=== PATIENT | female | born 1955 | race Two or more races ===

== ENCOUNTER 2021-01-02 13:04 | Inpatient (IN) | payer OTHER ==
[~2021-01-02] VITALS: Ht 170.2 cm; Wt 74.0 kg
--- NOTE | 2021-01-02 13:14 | NUR ---
FNPS: CODE NEURO CALLED
[2021-01-02] MEDS ORDERED: LABETALOL 5MG/ML, 20ML ONE (13:22)
[2021-01-02] MEDS ORDERED: MORPHINE SULFATE 4 MG/ML, 1ML ONE ×2 (13:25→14:30)
[2021-01-02] MEDS ORDERED: LABETALOL 5MG/ML, 20ML IVPush STA (13:28)
[2021-01-02] MEDS: MORPHINE SULFATE 4 MG/ML, 1ML IVPush PRN ×2 (13:33→14:34)
--- NOTE | 2021-01-02 13:33 | NUR ---
CODE NEURO CALLED AT 1314. PT PRESENTS TO THIS RN WITH SLURRED SPEECH, L. FACIAL DROOP, L. SIDED WEAKNESS 4/5. DR. ALFREDO TO BEDSIDE AND CODE NEURO TEAM. PT TO HEAD CT AT 1330. PT MEDICATED PER EMAR.
--- NOTE | 2021-01-02 13:34 | NUR ---
LAST KNOWN "NORMAL" WAS AT 1015. BS 117.
--- NOTE | 2021-01-02 13:41 | NUR ---
PT BACK TO ROOM. TELE NEURO AND CODE NEURO TEAM AT BEDSIDE.
[2021-01-02 13:42] LABS: BASOPHILS % (AUTO) 1 % (0-1); EOSINOPHILS % (AUTO) 1 % (1-7); LYMPHOCYTES % (AUTO) 45 % (22-44); MEAN CORPUSCULAR HEMOGLOBIN 28.3 pg (27.0-34.8); MEAN CORPUSCULAR HGB CONC 33.9 g/dL (32.4-35.8); MEAN PLATELET VOLUME 8.4 fL (7.4-10.4); MONOCYTES % (AUTO) 5 % (2-9); NEUTROPHILS % (AUTO) 47 % (42-75); PLATELET COUNT 237 x10^3/uL (130-400); RED BLOOD COUNT 5.87 x10^6/uL (3.82-5.3); RED CELL DISTRIBUTION WIDTH 13.9 % (9.6-15.2)
--- NOTE | 2021-01-02 13:49 | NUR ---
NIH SCORE OF 4
--- NOTE | 2021-01-02 14:22 | NUR ---
pt resting in bed. no longer slurring words. vss. nadn.
[2021-01-02] MEDS ORDERED: LABETALOL 5MG/ML, 20ML IVPush ONE (14:30)
[2021-01-02] MEDS ORDERED: ROSU10TA2 PO (14:41)
[2021-01-02] MEDS ORDERED: METF500T27 PO (14:41)
[2021-01-02] MEDS ORDERED: ATEN1TAB4 PO (14:41)
[2021-01-02] MEDS ORDERED: CARI-389 PO (14:41)
[2021-01-02] MEDS ORDERED: CLON0.1T2 PO (14:41)
[2021-01-02] MEDS ORDERED: OXYC-296 PO (14:41)
[2021-01-02] MEDS ORDERED: ALPR2TAB7 PO (14:41)
[2021-01-02] MEDS ORDERED: AMLO10TA4 PO (14:41)
--- NOTE | 2021-01-02 14:41 | NUR ---
med rec verifed and entered by this rn. pt resting in bed. friend at bedside. nadn. swift.
[2021-01-02 15:00] LABS: INTERNATIONAL NORMALIZED RATIO 1.07 (0.93-1.1); PROTHROMBIN TIME 11.4 Seconds (9.6-11.5)
[2021-01-02] MEDS ORDERED: ONDANSETRON 2MG/ML, 2ML IVPush ONE (15:00)
--- NOTE | 2021-01-02 15:40 | NUR ---
DR. RICH AT BEDSIDE FOR ADMIT. PT TO GO MRI. VSS. BORGES. FRIEND AT BEDSIDE
[2021-01-02] MEDS ORDERED: ACETAMINOPHEN 650 MG/20.3 ML UDC PO PRN (16:00)
[2021-01-02] MEDS ORDERED: ONDANSETRON 2MG/ML, 2ML IVPush PRN (16:00)
[2021-01-02] MEDS ORDERED: DEXTROSE 4 GM TAB.CHEW PO PRN (16:00)
[2021-01-02] MEDS ORDERED: ENOXAPARIN 40 MG/0.4 ML SQ SCH ×2 (16:00→21:00)
[2021-01-02] MEDS ORDERED: POLYETHYLENE GLYCOL 17 GM PACKET PO PRN (16:00)
[2021-01-02] MEDS ORDERED: ENALAPRILAT 1.25 MG/ML, 2ML IV PRN (16:00)
[2021-01-02] MEDS ORDERED: LABETALOL 5MG/ML, 20ML IV PRN (16:00)
[2021-01-02] MEDS: INSULIN LISPRO 100 UNITS/ML, PEN SQ-INSULIN SCH ×2 (16:00→20:57)
[2021-01-02] MEDS ORDERED: DEXTROSE 50%, 50ML SYRINGE IVPush PRN (16:00)
[2021-01-02] MEDS ORDERED: GLUCAGON 1 MG IM PRN (16:00)
--- NOTE | 2021-01-02 16:12 | NUR ---
PT IN MRI
--- NOTE | 2021-01-02 17:25 | NUR ---
REPORT CALLED TO DIANNA GUILLERMO. PT READY FOR TRANSFER
[2021-01-02] MEDS ORDERED: ENALAPRILAT 1.25 MG/ML, 2ML ONE (17:47)
[2021-01-02 18:47] LABS: ALANINE AMINOTRANSFERASE 31 U/L (12-78); ALBUMIN 3.7 g/dL (3.4-5.0); ANION GAP 4 mmol/L (5-15); CALCIUM 9.4 mg/dL (8.5-10.1); CHLORIDE 106 mmol/L (98-107); CREATININE 0.89 mg/dL (0.55-1.02)
[2021-01-02 18:51] LABS: ALKALINE PHOSPHATASE 63 U/L (45-117); BILIRUBIN,TOTAL 0.4 mg/dL (0.2-1.0); TROPONIN I < 0.015 ng/mL (0.000-0.045)
[2021-01-02 18:56] VITALS: BP 156/76
[2021-01-02 20:00] VITALS: BP 156/76
[2021-01-02] MEDS: SODIUM CHLORIDE FLUSH 10ML SYR IVF SCH (20:57)
[2021-01-02] MEDS ORDERED: ATORVASTATIN 40 MG TABLET PO SCH (21:00)
[2021-01-02] MEDS: OXYcodone/APAP 10/325MG TABLET PO PRN (21:14)
[2021-01-02 21:52] LABS: TROPONIN I < 0.015 ng/mL (0.000-0.045)
[2021-01-03] VITALS: BP 135/73
[2021-01-03 02:00] VITALS: BP 132/76
[2021-01-03 03:30] LABS: BASOPHILS % (AUTO) 1 % (0-1); EOSINOPHILS % (AUTO) 2 % (1-7); LYMPHOCYTES % (AUTO) 49 % (22-44); MEAN CORPUSCULAR HGB CONC 33.3 g/dL (32.4-35.8); MEAN PLATELET VOLUME 8.4 fL (7.4-10.4); MONOCYTES % (AUTO) 6 % (2-9); NEUTROPHILS % (AUTO) 43 % (42-75); PLATELET COUNT 234 x10^3/uL (130-400); RED CELL DISTRIBUTION WIDTH 14.1 % (9.6-15.2)
[2021-01-03 03:42] LABS: ANION GAP 5 mmol/L (5-15); CALCIUM 9.3 mg/dL (8.5-10.1); CHLORIDE 104 mmol/L (98-107)
[2021-01-03 03:53] LABS: CHOL/HDL RATIO 5.3; CHOLESTEROL, TOTAL 186 mg/dL (140-239); CREATININE 1.07 mg/dL (0.55-1.02); HDL CHOL % 19 % (28-40); HDL CHOLESTEROL (DIRECT) 35 mg/dL (40-60); LDL CHOLESTEROL,CALCULATED 104 mg/dL (54-169); TRIGLYCERIDES 237 mg/dL (50-200); TROPONIN I < 0.015 ng/mL (0.000-0.045); VLDL CHOLESTEROL 47 mg/dL (0-25)
[2021-01-03 04:00] VITALS: BP 133/74
[2021-01-03] MEDS ORDERED: ATENOLOL 100 MG TABLET PO SCH (06:00)
[2021-01-03 06:09] VITALS: BP 130/74
[2021-01-03] MEDS: INSULIN LISPRO 100 UNITS/ML, PEN SQ-INSULIN SCH ×2 (07:00→11:00)
[2021-01-03 07:24] VITALS: BP 148/75
[2021-01-03] MEDS: SODIUM CHLORIDE FLUSH 10ML SYR IVF SCH (07:33)
[2021-01-03] MEDS: OXYcodone/APAP 10/325MG TABLET PO PRN (07:49)
[2021-01-03 08:00] VITALS: BP 132/80
[2021-01-03] MEDS ORDERED: ACETAMINOPHEN 650 MG/20.3 ML UDC PO PRN (08:00)
[2021-01-03] MEDS ORDERED: OXYcodone/APAP 10/325MG TABLET PO PRN (08:00)
[2021-01-03] MEDS ORDERED: AMLODIPINE 10 MG TAB PO SCH (09:00)
[2021-01-03] MEDS ORDERED: ALPRAZOLAM 2 MG PO SCH (09:00)
[2021-01-03] MEDS ORDERED: CLOP75TA52 PO (11:01)
[2021-01-03] MEDS ORDERED: INSU100I11 SQ-INSULIN (11:01)
== END 2021-01-03 14:36 | disposition home or self-care (01) | DRG 69 ==
LOC: ED 14:10 → EDIP 14:19 → 4WST 18:15
PROVIDERS: ADMIT Internal Medicine; ATTEND Internal Medicine
DX: G45.9 Transient cerebral ischemic attack, unspecified (principal); G93.41 Metabolic encephalopathy; R47.01 Aphasia; D75.1 Secondary polycythemia; E11.9 Type 2 diabetes mellitus without complications; E78.1 Pure hyperglyceridemia; F41.9 Anxiety disorder, unspecified; R27.0 Ataxia, unspecified; R29.810 Facial weakness; C73 Malignant neoplasm of thyroid gland; E78.5 Hyperlipidemia, unspecified; E87.6 Hypokalemia; I10 Essential (primary) hypertension; Z82.49 Family history of ischemic heart disease and other diseases of the circulatory system; Z83.3 Family history of diabetes mellitus; Z85.850 Personal history of malignant neoplasm of thyroid; Z86.73 Personal history of transient ischemic attack (TIA), and cerebral infarction without residual deficits; Z88.6 Allergy status to analgesic agent
CPT/HCPCS: 36415; 70450; 70496; 70498; 70551; 80047; 80048; 80053; 80061; 82962; 83036; 84439; 84443; 84484; 85025; 85610; 85730; 93005; 93306; 96374; 96375; 96376; 99285; G0378; J1650; J2270